=== PATIENT | female | born 1940 | race Caucasian/White ===

== ENCOUNTER 2025-01-20 09:07 | Outpatient (CLI) | payer MEDICARE, SELFPAY ==
--- NOTE | ~2025-01-20 | MMUS_ITS ---
EXAMINATION: MM diagnostic chapis BI w rodrigo, US breast BI complete HISTORY: Follow-up bilateral breast masses TECHNIQUE: Additional 3-D tomosynthesis images of the breasts were performed and synthetic 2-D images were generated. CAD analysis was submitted and interpreted. High resolution bilateral complete breas t ultrasound was performed. COMPARISON: Comparison to multiple prior studies sequentially, with oldest reviewed study dated 10/31. BREAST PARENCHYMAL COMPOSITION: Not dense: There are scattered areas of fibroglandular density. FINDINGS: MAMMOGRAPHIC FINDINGS: There are stable bilateral breast masses align for differences of technique. No new masses, calcifica tions or architectural distortion in either breast to suggest malignancy. Dominant right breast mass located in the lower inner quadrant of the right breast, middle third. ULTRASOUND: Complete US of all 4 quadrants of the breast/s and retroareolar region was reviewed. There are multiple bilateral breast cysts, largest corresponding to the dominant mammographic mass in the right breast at 2:00, 2 cm from the nipple measuring 1.9 cm. There is an echogenic focus with de nse shadowing in the left breast at 4:00, 6 cm from the nipple, consistent with calcification. No marshal picious masses in either breast to suggest malignancy. IMPRESSION: 1. No evidence for malignancy in either breast. Benign findings. 2. Routine yearly screening mammogram and regular clinical breast examination are recommended. BI-RADS Category 2: Benign finding(s). Reviewed, dictated and finalized at location A. IMPRESSION: 1. No evidence for malignancy in either breast. Benign findings. 2. Routine yearly screening mammogram and regular clinical breast examination a re recommended. BI-RADS Category 2: Benign finding(s).
--- OUTSIDE RECORDS SUMMARY | 2025-01-20 09:37 | XMS_ITS | Clinical Summary ---
Author Organization [facility] Address [address] [place] [address] Care Team Providers Care Field Service Supervisor Name Role Phone Shivam Sue MD Primary Care Provider [phone] Allergies No known active allergies Medications atorvastatin (LIPITOR) 10 mg tablet Take 1 tablet (10 mg total) by mouth daily 09/05/2022 Active olmesartan (BENICAR) 40 mg tablet Take 1 tablet (40 mg total) by mouth daily 09/01/2022 Active montelukast (SINGULAIR) 10 mg tablet Take 1 tablet (10 mg total) by mouth daily 07/05/2022 Active Januvia 50 mg tablet 09/14/2022 Active Surgical History Surgery Date Site/Laterality Comments BREAST BIOPSY 09/20/2022 Right benign uls needle bx BREAST BIOPSY 09/20/2022 Left benign uls needle bx HYSTERECTOMY OOPHORECTOMY Family History Medical History Relation Name Comments Breast cancer Paternal Great-Grandmother Ovarian cancer Neg Hx Thyroid cancer Neg Hx Relation Name Status Comments Paternal Great-Grandmother Social History Tobacco Use Types Packs/Day Years Used Date Smoking Tobacco: Never Assessed Comments Unknown Sex and Gender Information Value Date Recorded Sex Assigned at Not on file 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 Gender Identity Not on file Sexual Orientation Not on file Obstetrics History Para Term AB IAB SAB Ectopic Multiple Livin g Live Births 3 3 3 Date Outcome GA Total Labor Labor/2nd/3rd Weight Sex Type Anes PTL Veronika A1 A5 Name Clin Term Term Term Last Filed Vital Signs Vital Sign Reading Time Taken Comments Blood Pressure - - Pulse 80 09/20/2022 1:05 PM CDT Temperature 37.8 C (100 F) 09/20/2022 1:05 PM CDT Respiratory Rate 16 09/20/2022 1:05 PM CDT Oxygen Saturation 100% 09/20/2022 1:05 PM CDT Inhaled Oxygen Concentration - - Weight 73.5 kg (162 lb) 09/20/2022 1:05 PM CDT Height 157.5 cm (5' 2) 06/06/2024 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 Body Mass Index 29.63 09/20/2022 1:05 PM CDT Plan of Treatment Health Maintenance Due Date Last Done Comments Depression Screening 1942 Fall Risk Assessment 1942 Hepatitis B Screening 1960 Well Visit 65+ 2007 Zoster Vaccine (3 of 3) 10/09/2022 08/14/2022, 06/11 Osteoporosis Screening-Bone Density Scan 05/10/2023 05/10/2021 Covid-19 Vaccine (2023-2 5 season) 2024 02/27/2022, 09/28/2021, 03/07/2021, Additional history exists Influenza Vaccine (#1) 2025 , 02/27/2022, 04/04/2021, Additional history exists DTaP/Tdap/Td Vaccine (2 - Td or Tdap) 06/19/2025 06/19/2015 Pneumococcal vaccine 65+ Completed 03/15/2018, 06/2016 Medical Devices Implanted Type Area Administrative Dietitian Device Identifier Shelf Expiration Date Model / Serial / Lot Bard Peripheral Vascular Ultraclip Bard 17ga 10cm 2 Trigger Permanent Ultrasound [id number] - [id number] - [id number] Implanted:Qty: 1 on 09/20/2022 by Zeke Marti MD at [facility] Breast Right: Breast Bard Peripheral Vascular 11/05/2024 [id number] / [id number] Description:Implanted Right Breast 9:00 area [employer] Insurance [facility] Care Teams Field Service Supervisor Relationship Specialty Start Date End Date Shivam Sue MD PCP - General Internal Medicine 09/19/23
== END 2025-01-20 09:08 | disposition home or self-care (01) ==
LOC: ANHIMG 09:11
PROVIDERS: PCP Internal Medicine; Visit Provider Internal Medicine
DX: N63.12 Unspecified lump in the right breast, upper inner quadrant (principal); N63.23 Unspecified lump in the left breast, lower outer quadrant
CPT/HCPCS: 76641; 76642; 77062; 77066; G0279